=== PATIENT | female | born 1940 | race African-American/Black ===

== ENCOUNTER 2020-06-09 05:09 | Inpatient (IN) | payer MEDICARE, OTHER ==
[~2020-06-09] VITALS: Ht 167.6 cm; Wt 53.5 kg
[2020-06-09] MEDS ORDERED: KETOROLAC 30MG/ML VIAL IV ONE (06:30)
[2020-06-09] MEDS ORDERED: PIPERACILLIN/TAZ 3.375G PREMIX 50 ML IV ONE (06:30)
[2020-06-09] MEDS ORDERED: VANCOMYCIN 1 G PREMIX 200 ML IV ONE (06:30)
[2020-06-09 06:48] LABS: BASOPHILS % 0.4 % (0.0-2.0); EOSINOPHILS % 0.8 % (0.0-5.0); HEMOGLOBIN. 11.4 g/dL (12.0-16.0); LYMPHOCYTES % 15.3 % (20.0-50.0); MEAN CORPUSCULAR HEMOGLOBIN 23.9 pg (28.0-32.0); MEAN CORPUSCULAR VOLUME 75.5 fL (81.0-99.0); MEAN PLATELET VOLUME 10.2 fl (7.4-10.4); MONOCYTES % 8.5 % (2.0-8.0); PLATELET 273 x1000/uL (130-400); RED BLOOD CELL COUNT 4.76 mill/uL (4.2-5.4); RED CELL DISTRIBUTION WIDTH 19.1 % (11.6-14.6)
[2020-06-09 06:56] LABS: INR 1.1; PROTHROMBIN TIME 11.4 sec (9.6-11.0)
[2020-06-09 06:57] LABS: CHLORIDE 116 mEq/L (98-107)
[2020-06-09 08:34] LABS: CLARITY URINE CLEAR (CLEAR); COLOR URINE DK YELLOW (YELLOW); KETONES URINE NEGATIVE (NEGATIVE); LEUKOCYTE ESTERASE URINE NEGATIVE (NEGATIVE); NITRITE URINE NEGATIVE (NEGATIVE); OCCULT BLOOD URINE NEGATIVE (NEGATIVE); PH URINE 5.5 (4.5-8.0); PROTEIN URINE NEGATIVE (NEGATIVE); SPECIFIC GRAVITY URINE 1.024 (1.005-1.030)
[2020-06-09] MEDS ORDERED: GUAIFENESIN 200MG/10ML SUGAR FREE UDC PO PRN (09:00)
[2020-06-09] MEDS ORDERED: HYDROCODONE/ACETAMINOPHEN 5/325MG TABLET PO PRN (09:00)
[2020-06-09] MEDS ORDERED: ACETAMINOPHEN 650MG/20.3ML UDC GT PRN (09:00)
[2020-06-09] MEDS ORDERED: ONDANSETRON HCL 4MG/2ML INJ IV PRN (09:00)
[2020-06-09] MEDS ORDERED: ENOXAPARIN 40MG/0.4ML SYR SUBCUT SCH (09:00)
[2020-06-09] MEDS ORDERED: ACETAMINOPHEN 325MG TABLET PO PRN ×2 (09:00)
[2020-06-09] MEDS ORDERED: DOCUSATE SODIUM 100MG CAPSULE PO PRN (09:00)
[2020-06-09] MEDS: ENOXAPARIN 30MG/0.3ML SYR SUBCUT SCH (09:26)
[2020-06-09 14:40] VITALS: BP 142/100
[2020-06-09 16:00] VITALS: BP 129/65
[2020-06-09] MEDS ORDERED: ASPI-1158 MT (18:23)
[2020-06-09] MEDS ORDERED: SIMV10TA97 MT (18:23)
[2020-06-09] MEDS ORDERED: CEPH500C2 MT (18:23)
[2020-06-09] MEDS ORDERED: AMLO10TA80 MT (18:23)
[2020-06-09] MEDS ORDERED: CHLO25TA2 MT (18:23)
[2020-06-09 20:00] VITALS: BP 143/68
[2020-06-09] MEDS ORDERED: VANCOMYCIN 500 MG PREMIX 100 ML IV SCH (20:00)
[2020-06-09] MEDS: INSULIN LISPRO 100 UNITS/ML SUBCUT SCH (21:00)
[2020-06-09] MEDS: BLOOD SUGAR DIAGNOSTIC STRIP TEST SCH (21:00)
[2020-06-09] MEDS: PIPERACILLIN/TAZOBACTAM 2.25 G in DEXTROSE 5% WATER 50 ML IV SCH (21:48)
[2020-06-09] MEDS ORDERED: VANCOMYCIN 750 MG PREMIX 150 ML IV SCH (23:00)
[2020-06-10] VITALS: BP 142/51
[2020-06-10 04:00] VITALS: BP 129/51
[2020-06-10] MEDS: PIPERACILLIN/TAZOBACTAM 2.25 G in DEXTROSE 5% WATER 50 ML IV SCH ×4 (04:05→21:52)
[2020-06-10 06:45] LABS: BASOPHILS % 0.7 % (0.0-2.0); EOSINOPHILS % 2.4 % (0.0-5.0); HEMATOCRIT. 32.4 % (36.0-48.0); HEMOGLOBIN. 10.3 g/dL (12.0-16.0); LYMPHOCYTES % 13.1 % (20.0-50.0); MEAN CORPUSCULAR VOLUME 75.4 fL (81.0-99.0); MEAN PLATELET VOLUME 10.3 fl (7.4-10.4); MONOCYTES % 8.2 % (2.0-8.0); NEUTROPHILS % 75.6 % (40.0-76.0); PLATELET 265 x1000/uL (130-400); RED CELL DISTRIBUTION WIDTH 18.8 % (11.6-14.6)
[2020-06-10] MEDS: BLOOD SUGAR DIAGNOSTIC STRIP TEST SCH ×4 (06:59→21:35)
[2020-06-10] MEDS: INSULIN LISPRO 100 UNITS/ML SUBCUT SCH ×4 (06:59→21:00)
[2020-06-10 08:00] VITALS: BP 132/58
[2020-06-10 12:00] VITALS: BP 143/52
[2020-06-10] MEDS: ENOXAPARIN 30MG/0.3ML SYR SUBCUT SCH (12:31)
[2020-06-10] MEDS: VANCOMYCIN 750 MG PREMIX 150 ML IV SCH ×2 (15:25→17:20)
[2020-06-10 16:00] VITALS: BP 148/67
[2020-06-10] MEDS: SODIUM CHLORIDE 0.9% 1,000 ML IV SCH (17:17)
[2020-06-10 20:00] VITALS: BP 99/60
[2020-06-11] VITALS: BP 119/83
[2020-06-11] MEDS: PIPERACILLIN/TAZOBACTAM 2.25 G in DEXTROSE 5% WATER 50 ML IV SCH ×4 (03:40→22:13)
[2020-06-11 04:00] VITALS: BP 116/92
[2020-06-11] MEDS: BLOOD SUGAR DIAGNOSTIC STRIP TEST SCH ×4 (05:45→21:00)
[2020-06-11] MEDS: INSULIN LISPRO 100 UNITS/ML SUBCUT SCH ×4 (05:47→21:00)
[2020-06-11 08:00] VITALS: BP 142/49
[2020-06-11] MEDS: ENOXAPARIN 30MG/0.3ML SYR SUBCUT SCH (09:11)
[2020-06-11] MEDS: SODIUM CHLORIDE 0.9% 1,000 ML IV SCH (09:12)
[2020-06-11 12:00] VITALS: BP 136/47
[2020-06-11] MEDS: DEXTROSE 5% WATER 1,000 ML IV SCH (13:09)
[2020-06-11] MEDS: VANCOMYCIN 500 MG PREMIX 100 ML IV SCH (15:21)
[2020-06-11 16:00] VITALS: BP 111/84
[2020-06-11 20:00] VITALS: BP 121/66
[2020-06-12] VITALS (7 sets, daily range): BP systolic 105–200; BP diastolic 62–109
[2020-06-12] MEDS: DEXTROSE 5% WATER 1,000 ML IV SCH ×2 (01:28→14:30)
[2020-06-12] MEDS: PIPERACILLIN/TAZOBACTAM 2.25 G in DEXTROSE 5% WATER 50 ML IV SCH ×4 (03:37→21:24)
[2020-06-12] MEDS: BLOOD SUGAR DIAGNOSTIC STRIP TEST SCH ×4 (06:21→21:24)
[2020-06-12] MEDS: INSULIN LISPRO 100 UNITS/ML SUBCUT SCH ×4 (06:21→21:00)
[2020-06-12] MEDS: ENOXAPARIN 30MG/0.3ML SYR SUBCUT SCH (08:27)
[2020-06-12] MEDS: VANCOMYCIN 500 MG PREMIX 100 ML IV SCH (08:28)
[2020-06-12] MEDS ORDERED: CEPH500C2 MT (13:24)
[2020-06-12 15:28] LABS: BASOPHILS % 0.7 % (0.0-2.0); HEMATOCRIT. 30.2 % (36.0-48.0); HEMOGLOBIN. 9.7 g/dL (12.0-16.0); LYMPHOCYTES % 20.1 % (20.0-50.0); MEAN CORPUSCULAR HEMOGLOBIN 23.7 pg (28.0-32.0); MEAN PLATELET VOLUME 10.5 fl (7.4-10.4); MONOCYTES % 8.1 % (2.0-8.0); NEUTROPHILS % 69.1 % (40.0-76.0); PLATELET 271 x1000/uL (130-400); RED BLOOD CELL COUNT 4.08 mill/uL (4.2-5.4)
[2020-06-12] MEDS: SODIUM CHLORIDE 0.9% 1,000 ML IV SCH (23:11)
[2020-06-13] VITALS: BP 109/67
[2020-06-13] MEDS: VANCOMYCIN 500 MG PREMIX 100 ML IV SCH ×2 (02:50→21:41)
[2020-06-13 04:00] VITALS: BP 122/67
[2020-06-13] MEDS: PIPERACILLIN/TAZOBACTAM 2.25 G in DEXTROSE 5% WATER 50 ML IV SCH ×4 (04:30→22:02)
[2020-06-13] MEDS: DEXTROSE 50% WATER 50ML SYRINGE IV PRN ×2 (06:10→21:30)
[2020-06-13] MEDS: BLOOD SUGAR DIAGNOSTIC STRIP TEST SCH ×4 (06:15→22:00)
[2020-06-13] MEDS: INSULIN LISPRO 100 UNITS/ML SUBCUT SCH ×4 (06:15→22:00)
[2020-06-13 08:00] VITALS: BP 129/67
[2020-06-13] MEDS: ENOXAPARIN 30MG/0.3ML SYR SUBCUT SCH (08:30)
[2020-06-13] MEDS ORDERED: POTASSIUM CHLORIDE 20MEQ TABLET SR PO NR (09:15)
[2020-06-13 12:00] VITALS: BP 129/67
[2020-06-13] MEDS ORDERED: SODIUM BICARBONATE 4% (2.4MEQ) 5ML VIAL IV ONE (14:34)
[2020-06-13] MEDS ORDERED: LIDOCAINE HCL 1% 20ML VIAL (Pyxis) INJ ONE (14:34)
[2020-06-13] MEDS ORDERED: IOHEXOL-350 100 ML BOTTLE ONE (15:22)
[2020-06-13 16:00] VITALS: BP 130/97
[2020-06-13] MEDS: DEXTROSE 5% WATER 1,000 ML IV SCH (16:50)
[2020-06-13 20:00] VITALS: BP 106/87
[2020-06-13] MEDS: MIRTAZAPINE 15MG TABLET PO SCH (22:01)
[2020-06-14] VITALS: BP 138/79
[2020-06-14 04:00] VITALS: BP 141/97
[2020-06-14] MEDS: PIPERACILLIN/TAZOBACTAM 2.25 G in DEXTROSE 5% WATER 50 ML IV SCH ×4 (04:56→20:52)
[2020-06-14] MEDS: INSULIN LISPRO 100 UNITS/ML SUBCUT SCH ×4 (06:35→20:32)
[2020-06-14] MEDS: BLOOD SUGAR DIAGNOSTIC STRIP TEST SCH ×4 (06:35→20:32)
[2020-06-14 08:00] VITALS: BP 137/71
[2020-06-14] MEDS: ENOXAPARIN 30MG/0.3ML SYR SUBCUT SCH (11:07)
[2020-06-14] MEDS: ASCORBIC ACID 500 MG TABLET PO SCH (11:07)
[2020-06-14] MEDS: ZINC SULFATE 220 MG ( 50 ) CAPSULE PO SCH (11:07)
[2020-06-14] MEDS: DEXTROSE 5% WATER 1,000 ML IV SCH ×2 (11:09→20:51)
[2020-06-14] MEDS ORDERED: ASCO500T20 PO (11:12)
[2020-06-14] MEDS ORDERED: AMLO10TA80 MT (11:12)
[2020-06-14] MEDS ORDERED: ASPI-1158 MT (11:12)
[2020-06-14] MEDS ORDERED: MIRT15TA6 PO (11:12)
[2020-06-14] MEDS ORDERED: SIMV10TA97 MT (11:12)
[2020-06-14 12:00] VITALS: BP 155/47
[2020-06-14 16:00] VITALS: BP 158/57
[2020-06-14] MEDS: VANCOMYCIN 500 MG PREMIX 100 ML IV SCH (18:06)
[2020-06-14 20:00] VITALS: BP 169/57
[2020-06-14] MEDS: MIRTAZAPINE 15MG TABLET PO SCH (20:51)
[2020-06-15] VITALS: BP 146/88
[2020-06-15 04:00] VITALS: BP 154/60
[2020-06-15] MEDS: BLOOD SUGAR DIAGNOSTIC STRIP TEST SCH ×2 (06:31→12:09)
[2020-06-15] MEDS: INSULIN LISPRO 100 UNITS/ML SUBCUT SCH ×2 (06:31→12:09)
[2020-06-15 08:00] VITALS: BP 126/72
[2020-06-15] MEDS: DEXTROSE 5% WATER 1,000 ML IV SCH (10:11)
[2020-06-15] MEDS: ENOXAPARIN 30MG/0.3ML SYR SUBCUT SCH (10:11)
[2020-06-15] MEDS: ASCORBIC ACID 500 MG TABLET PO SCH (10:11)
[2020-06-15] MEDS: ZINC SULFATE 220 MG ( 50 ) CAPSULE PO SCH (10:11)
[2020-06-15 12:00] VITALS: BP 143/71
[2020-06-15 16:00] VITALS: BP 135/70
[2020-06-15 16:23] VITALS: BP 135/70
== END 2020-06-15 17:25 | disposition home health service (06) | DRG 240 ==
LOC: ER 05:09 → EDBEDREQ 07:56 → EDBEDREQTM 07:56 → EDBEDREQSVC 07:56 → 5WST 08:30 → EDBEDREQ 08:36 → EDBEDREQTM 08:36 → EDBEDREQ 11:41 → ENRESERV 13:55
PROVIDERS: ADMIT Family Medicine; ATTEND Family Medicine
PROC: 0Y6N0Z9 Detachment at Left Foot, Partial 1st Ray, Open Approach (ICD-10-PCS; principal; 2020-06-11)
DX: E11.52 Type 2 diabetes mellitus with diabetic peripheral angiopathy with gangrene (principal); E44.1 Mild protein-calorie malnutrition; E87.1 Hypo-osmolality and hyponatremia; J98.11 Atelectasis; M86.9 Osteomyelitis, unspecified; Z68.1 Body mass index [BMI] 19.9 or less, adult; I96 Gangrene, not elsewhere classified; S92.512A Displaced fracture of proximal phalanx of left lesser toe(s), initial encounter for closed fracture; E86.0 Dehydration; F03.90 Unspecified dementia, unspecified severity, without behavioral disturbance, psychotic disturbance, mood disturbance, and anxiety; I10 Essential (primary) hypertension; J44.9 Chronic obstructive pulmonary disease, unspecified; M85.80 Other specified disorders of bone density and structure, unspecified site; X58.XXXA Exposure to other specified factors, initial encounter; E11.69 Type 2 diabetes mellitus with other specified complication; E11.649 Type 2 diabetes mellitus with hypoglycemia without coma; L89.156 Pressure-induced deep tissue damage of sacral region; Z74.01 Bed confinement status; Y93.89 Activity, other specified; Y92.89 Other specified places as the place of occurrence of the external cause; Y99.8 Other external cause status; R62.7 Adult failure to thrive; M62.462 Contracture of muscle, left lower leg; M62.461 Contracture of muscle, right lower leg; R53.81 Other malaise
CPT/HCPCS: 36415; 71045; 72191; 73620; 73706; 80048; 80053; 80061; 80202; 81003; 82040; 82962; 83036; 83605; 84134; 84145; 84484; 85025; 88305; 88311; 93005; 93306; 93923; 99285; J1650; J1885; J2543; J3370; J3490; J7030; J7060; J7070; Q9967

== ENCOUNTER 2021-09-02 19:54 | Inpatient (IN) | payer MEDICARE, MEDICAID ==
[~2021-09-02] VITALS: Ht 157.5 cm; Wt 40.6 kg
[~2021-09-02 19:54] MED LIST: AMLO10TA80 MT; ASCO500T20 PO; ASPI-1406 MT; CEPH500C2 MT; CHLO25TA2 MT; MIRT-89 PO; SIMV10TA97 MT
[2021-09-02] MEDS ORDERED: VANCOMYCIN 1 G PREMIX 200 ML IV ONE (20:30)
[2021-09-02] MEDS ORDERED: PIPERACILLIN/TAZ 3.375G PREMIX 50 ML IV ONE (20:30)
[2021-09-02] MEDS ORDERED: SODIUM CHLORIDE 0.9% 1000ML BAG (SEPSIS BOLUS) IV ONE (20:30)
[2021-09-02 21:54] LABS: BASOPHILS % 0.2 % (0.0-2.0); HEMATOCRIT. 45.4 % (36.0-48.0); HEMOGLOBIN. 13.4 g/dL (12.0-16.0); LYMPHOCYTES % 12.1 % (20.0-50.0); MEAN CORPUSCULAR HEMOGLOBIN 26.4 pg (28.0-32.0); MEAN CORPUSCULAR VOLUME 89.4 fL (81.0-99.0); MEAN PLATELET VOLUME 12.6 fl (7.4-10.4); MONOCYTES % 5.8 % (2.0-8.0); NEUTROPHILS % 81.9 % (40.0-76.0); PLATELET 95 x1000/uL (130-400); RED BLOOD CELL COUNT 5.08 mill/uL (4.2-5.4); RED CELL DISTRIBUTION WIDTH 17.4 % (11.6-14.6)
[2021-09-02 22:00] LABS: CHLORIDE 149 mEq/L (98-107)
[2021-09-02] MEDS ORDERED: PROPOFOL 10MG/ML 100ML 100 ML IV STA (22:39)
[2021-09-02] MEDS ORDERED: SODIUM BICARBONATE 8.4% 1 MEQ/ML 50ML SYR IV ONE (23:15)
[2021-09-02] MEDS ORDERED: DEXTROSE 50% WATER 50ML SYRINGE IV ONE (23:15)
[2021-09-02] MEDS ORDERED: INSULIN REGULAR (HUMULIN R) 300UNITS/3ML VIAL IV ONE (23:15)
[2021-09-02] MEDS ORDERED: ALBUTEROL (0.083%) 2.5MG/3ML NEB HHN ONE (23:15)
[2021-09-02] MEDS ORDERED: ONDANSETRON HCL 4MG/2ML INJ IV PRN (23:30)
[2021-09-02] MEDS ORDERED: ACETAMINOPHEN 325MG TABLET PO PRN (23:30)
[2021-09-02] MEDS ORDERED: ENOXAPARIN 40MG/0.4ML SYR SUBCUT SCH (23:30)
[2021-09-03] VITALS (67 sets, daily range): BP systolic 46–187; BP diastolic 19–119
[2021-09-03 00:08] LABS: INR 1.1; PARTIAL THROMBOPLASTIN TIME 24.4 sec (23.4-31.0); PROTHROMBIN TIME 11.9 sec (9.6-11.0)
[2021-09-03 00:27] LABS: CLARITY URINE CLOUDY (CLEAR); COLOR URINE DARK YELLOW (YELLOW); KETONES URINE TRACE (NEGATIVE); LEUKOCYTE ESTERASE URINE 1+ (NEGATIVE); NITRITE URINE POSITIVE (NEGATIVE); OCCULT BLOOD URINE TRACE (NEGATIVE); PROTEIN URINE 1+ (NEGATIVE); SPECIFIC GRAVITY URINE 1.023 (1.005-1.030)
[2021-09-03] MEDS ORDERED: WATER IV NR (00:30)
[2021-09-03] MEDS ORDERED: DEXT 5% IV NR (00:30)
[2021-09-03] MEDS ORDERED: CEFEPIME IV NR (00:30)
[2021-09-03 00:42] LABS: *BARBITURATES SCREEN URINE NEGATIVE (NEGATIVE); *COCAINE SCREEN URINE NEGATIVE (NEGATIVE)
[2021-09-03 00:43] LABS: CANNABINOID URINE SCREEN NEGATIVE (NEGATIVE); METHADONE URINE SCREEN NEGATIVE (NEGATIVE); OPIATES URINE SCREEN NEGATIVE (NEGATIVE); PHENCYCLIDINE URINE SCREEN NEGATIVE (NEGATIVE)
[2021-09-03] MEDS: PANTOPRAZOLE SODIUM 40 MG/VIAL IV SCH ×2 (00:44→11:14)
[2021-09-03 00:45] LABS: *AMPHETAMINES SCREEN URINE NEGATIVE (NEGATIVE)
[2021-09-03 00:46] LABS: *BENZODIAZEPINES SCREEN URINE NEGATIVE (NEGATIVE)
[2021-09-03 00:57] LABS: BG CARBOXYHEMOGLOBIN 0.1 % (0.5-1.5); BG DEOXYHEMOGLOBIN 1.9 % (0.0-5.0); BG FRACTION INSPIRED OXYGEN 36; BG HCO3 ACT 16.6 mmol/L (22.0-26.0); BG OXYGEN SATURATION 98.1 % (92.0-98.5); BG PCO2 24.8 mmHg (35.0-45.0); BG PH 7.444 (7.350-7.450); BG PO2 149.9 mmHg (75.0-100.0); BG SAMPLE SITE RIGHT RADIAL; BG TOTAL HEMOGLOBIN 11.3 g/dL (12.0-18.0); BG VENT MODE NASAL CANNULA
[2021-09-03 02:01] LABS: CHLORIDE 111 mEq/L (98-107)
[2021-09-03] MEDS: DEXTROSE 5% WATER 1,000 ML IV SCH ×2 (04:00→12:11)
[2021-09-03] MEDS ORDERED: NOREPINEPHRINE 8 MG in DEXTROSE 5% WATER 250 ML IV PRN (05:00)
[2021-09-03] MEDS ORDERED: NOREPINEPHRINE 8MG/250ML PMX 250 ML IV PRN (05:00)
[2021-09-03 05:30] LABS: BASOPHILS % 0.2 % (0.0-2.0); EOSINOPHILS % 0.1 % (0.0-5.0); HEMATOCRIT. 40.1 % (36.0-48.0); HEMOGLOBIN. 12.5 g/dL (12.0-16.0); LYMPHOCYTES % 10.1 % (20.0-50.0); MEAN CORPUSCULAR HEMOGLOBIN 26.4 pg (28.0-32.0); MEAN PLATELET VOLUME 12.3 fl (7.4-10.4); NEUTROPHILS % 82.6 % (40.0-76.0); PLATELET 83 x1000/uL (130-400); RED BLOOD CELL COUNT 4.72 mill/uL (4.2-5.4)
[2021-09-03] MEDS ORDERED: DEXTROSE 50% WATER 50ML SYRINGE IV PRN (07:00)
[2021-09-03] MEDS ORDERED: CALCIUM GLUCONATE 100MG/ML 10ML VIAL IV ONE (07:00)
[2021-09-03] MEDS ORDERED: CALCIUM GLUCONATE 1GM PREMIX 50 ML IV ONE (07:30)
[2021-09-03] MEDS: INSULIN LISPRO 100 UNITS/ML SUBCUT SCH ×4 (08:20→20:42)
[2021-09-03] MEDS: BLOOD SUGAR DIAGNOSTIC STRIP TEST SCH ×4 (08:33→20:42)
[2021-09-03] MEDS: PHENYLEPHRINE 50 MG in DEXTROSE 5% WATER 250 ML IV PRN ×2 (08:35→21:44)
[2021-09-03] MEDS ORDERED: AMIODARONE HCL 150 MG in DEXT 5% WATER 100 ML IV ONE (08:45)
[2021-09-03] MEDS ORDERED: AMIODARONE HCL 900 MG in DEXT 5% WATER 482 ML IV PRN (09:00)
[2021-09-03] MEDS ORDERED: AMIODARONE HCL 150 MG in DEXT 5% WATER 100 ML IV SCH (10:00)
[2021-09-03 10:21] LABS: BG DEOXYHEMOGLOBIN 0.4 % (0.0-5.0); BG HCO3 ACT 16.2 mmol/L (22.0-26.0); BG METHEMOGLOBIN 0.4 % (0.0-1.5); BG OXYGEN SATURATION 99.6 % (92.0-98.5); BG OXYHEMOGLOBIN 99.2 % (94.0-97.0); BG PCO2 23.8 mmHg (35.0-45.0); BG PO2 376.1 mmHg (75.0-100.0); BG SAMPLE SITE RIGHT RADIAL; BG TOTAL HEMOGLOBIN 13.2 g/dL (12.0-18.0); BG VENT MODE MASK - NRB
[2021-09-03] MEDS ORDERED: VASOPRESSIN 20 UNIT in SODIUM CHLORIDE 0.9% 99 ML IV PRN (10:30)
[2021-09-03] MEDS ORDERED: THIAMINE HCL 200 MG in SODIUM CHLORIDE 0.9% 100 ML IV SCH (10:30)
[2021-09-03] MEDS: AMIODARONE HCL 900 MG in DEXT 5% WATER 500 ML IV SCH ×2 (11:15→21:47)
[2021-09-03] MEDS ORDERED: NOREPINEPHRINE 32 MG in DEXT 5% WATER 218 ML IV PRN (12:30)
[2021-09-03] MEDS ORDERED: CEFEPIME IV SCH (21:00)
[2021-09-03] MEDS ORDERED: DEXT 5% IV SCH (21:00)
[2021-09-03] MEDS ORDERED: WATER IV SCH (21:00)
[2021-09-03 22:41] LABS: CREATINE KINASE MB FRACTION 28.7 ng/mL (0.5-3.6)
[2021-09-04] VITALS (53 sets, daily range): BP systolic 60–170; BP diastolic 19–105
[2021-09-04] MEDS ORDERED: DEXTROSE 5% WATER 1,000 ML IV SCH (03:00)
[2021-09-04] MEDS: BLOOD SUGAR DIAGNOSTIC STRIP TEST SCH ×2 (05:44→11:08)
[2021-09-04] MEDS: INSULIN LISPRO 100 UNITS/ML SUBCUT SCH ×2 (05:44→12:00)
[2021-09-04] MEDS: PHENYLEPHRINE 50 MG in DEXTROSE 5% WATER 250 ML IV PRN ×2 (05:55→12:05)
[2021-09-04 06:12] LABS: CHLORIDE 125 mEq/L (98-107); HEMATOCRIT. 41.5 % (36.0-48.0); HEMOGLOBIN. 12.8 g/dL (12.0-16.0); MEAN CORPUSCULAR HEMOGLOBIN 26.9 pg (28.0-32.0); RED BLOOD CELL COUNT 4.77 mill/uL (4.2-5.4); RED CELL DISTRIBUTION WIDTH 17.4 % (11.6-14.6)
[2021-09-04 06:42] LABS: CREATINE KINASE MB FRACTION 24.2 ng/mL (0.5-3.6); PHOSPHORUS 4.9 mg/dL (2.5-4.9)
[2021-09-04] MEDS ORDERED: SODIUM POLYSTYRENE SULFONATE 15 G/60 ML BOT PO SCH (08:00)
[2021-09-04] MEDS: PANTOPRAZOLE SODIUM 40 MG/VIAL IV SCH (08:16)
[2021-09-04 08:17] LABS: CREATINE KINASE 2384 IU/L (26-192)
[2021-09-04 08:35] LABS: NUCLEATED RED BLOOD CELLS 5 /100 WBC; PLATELET ESTIMATE DECREASED
[2021-09-04 08:37] LABS: MEAN PLATELET VOLUME 12.7 fl (7.4-10.4)
[2021-09-04 08:38] LABS: PLATELET 69 x1000/uL (130-400)
[2021-09-04] MEDS ORDERED: CALCIUM GLUCONATE 1,000 MG in DEXT 5% WATER 100 ML IV SCH (10:00)
[2021-09-04] MEDS ORDERED: DILTIAZEM HCL 125 MG in DEXT 5% WATER 100 ML IV PRN (10:15)
[2021-09-04] MEDS ORDERED: THIAMINE HCL 200 MG in SODIUM CHLORIDE 0.9% 98 ML IV SCH (10:30)
[2021-09-04] MEDS ORDERED: VANCOMYCIN 750 MG PREMIX 150 ML IV NR (12:00)
== END 2021-09-04 17:30 | DRG 871 ==
LOC: ER 19:54 → EDBEDREQTM 23:16 → EDBEDREQ 23:16 → EDBEDREQSVC 09-03 04:00 → EDBEDREQTM 09-03 04:00 → EDBEDREQDT 09-03 04:00 → MICUSO 09-03 05:03 → EDBEDREQTM 09-03 06:42 → EDBEDREQSVC 09-03 06:42 → ENRESERV 09-03 07:30
PROVIDERS: ADMIT Internal Medicine; ATTEND Internal Medicine
PROC: 06HY33Z Insertion of Infusion Device into Lower Vein, Percutaneous Approach (ICD-10-PCS; principal; 2021-09-03)
PROC: B54BZZA Ultrasonography of Right Lower Extremity Veins, Guidance (ICD-10-PCS; 2021-09-03)
DX: A41.9 Sepsis, unspecified organism (principal); J96.00 Acute respiratory failure, unspecified whether with hypoxia or hypercapnia; R65.21 Severe sepsis with septic shock; G93.41 Metabolic encephalopathy; N17.0 Acute kidney failure with tubular necrosis; N39.0 Urinary tract infection, site not specified; E87.0 Hyperosmolality and hypernatremia; I47.1 Supraventricular tachycardia; M62.82 Rhabdomyolysis; R47.01 Aphasia; M86.8X7 Other osteomyelitis, ankle and foot; Z68.1 Body mass index [BMI] 19.9 or less, adult; I70.263 Atherosclerosis of native arteries of extremities with gangrene, bilateral legs; E46 Unspecified protein-calorie malnutrition; Z66 Do not resuscitate; E86.0 Dehydration; E87.5 Hyperkalemia; E11.69 Type 2 diabetes mellitus with other specified complication; D69.6 Thrombocytopenia, unspecified; E78.5 Hyperlipidemia, unspecified; F03.90 Unspecified dementia, unspecified severity, without behavioral disturbance, psychotic disturbance, mood disturbance, and anxiety; J44.9 Chronic obstructive pulmonary disease, unspecified; I48.91 Unspecified atrial fibrillation; Z20.822 Contact with and (suspected) exposure to COVID-19; R74.01 Elevation of levels of liver transaminase levels; R13.10 Dysphagia, unspecified; I10 Essential (primary) hypertension; R79.89 Other specified abnormal findings of blood chemistry; L89.156 Pressure-induced deep tissue damage of sacral region; Z82.49 Family history of ischemic heart disease and other diseases of the circulatory system; Z83.3 Family history of diabetes mellitus; Z74.01 Bed confinement status; Z79.899 Other long term (current) drug therapy; Z79.82 Long term (current) use of aspirin; Z89.421 Acquired absence of other right toe(s)
CPT/HCPCS: 36415; 36600; 71045; 76770; 76937; 80048; 80053; 80202; 80305; 80320; 81003; 82375; 82550; 82553; 82805; 82962; 83605; 83735; 83880; 84100; 84145; 84484; 85025; 87426; 93005; 93306; 93923; 99291; C9113; J0282; J0610; J0692; J1815; J2370; J2543; J3370; J3411; J3490; J7030; J7050; J7060; J7070; G0480